=== PATIENT | male | born 1970 | race Caucasian/White ===

== ENCOUNTER 2020-09-21 15:02 | Emergency (ER) | payer OTHER, SELFPAY ==
[2020-09-21 18:40] VITALS: BP 164/99; PULSE 115; RESP 18; TEMP 36.9; O2SAT 93; BMI 25.1
[2020-09-21 20:32] VITALS: BP 172/112; PULSE 108; RESP 16; TEMP 37.2; O2SAT 94
--- NOTE | 2020-09-21 20:48 | ED_ITS ---
HPI - Alcohol General Chief Complaint: ETOH/Substance Use Stated Complaint: MULTPLE COMPLAINTS Time Seen by Provider: 09/21/20 15:10 Source: patient Mode of arrival: ambulatory Limitations: no limitations History of Present Illness HPI narrative: 50-year-old male with significant history of polysubstance abuse presents asking for detox. He is not forthcoming with his drug use but does admit to using Suboxone, cocaine, and the sleeve of alcohol nips today. He does not report suicidal or homicidal ideation, does not report any chest pain or pressure, palpitations, shortness breath, abdominal pain, abdominal distention, dysuria, hematuria, or any other concerning symptoms. MD complaint: alcohol intoxication Last drink: Just prior to admission Chronic alcohol use: Yes Previous visits for alcohol intoxication: Yes Recent trauma: No Associated symptoms: tremors Treatments prior to arrival: none Related Data Allergies Allergy/AdvReac Type Severity Reaction Status Date / Time apple [Apple] Allergy Severe SWELLING, Unverified 05/04/20 15:16 ITCHING plum [[place]] Allergy Severe SWELLING, Unverified 05/04/20 15:16 ITCHING Review of Systems Review of Systems: Constitutional: No Fever, No Chills ENT/Mouth: No sore throat, No Rhinorrhea Eyes: No Eye Pain, No Swelling, No Redness Cardiovascular: No Chest Pain, No SOB Respiratory: No Cough, No Sputum Gastrointestinal: No Nausea, No Vomiting, No Diarrhea, No abdominal Pain Genitourinary: No Dysuria, No Hematuria Musculoskeletal: No joint pain, No Myalgias, No Joint Swelling Skin: No Skin Lesions, No rash Neuro: No Weakness, No Numbness, No Loss of Consciousness, No Dizziness, No Headache Psych: No Anxiety, No Depression, No SI/HI/AH/VH Heme/Lymph: No Bruising, No Bleeding,No Lymphadenopathy Endocrine: No Polyuria, No Polydipsia PMFSH Past Medical History Attestation statement: The following information was validated with the patient. Source: old records reviewed Medical History (Updated 09/21/20 @ 21:16 by Carito Mcclellan NP) H/O alcohol abuse Hypertension Social History Social History Alcohol intake: current Alcohol intake frequency: 3 or more drinks per day [place] type: beer and hard liquor Smoking Status: Current every day smoker Smoked in Last 30 Days: Yes Use of substances other than those prescribed or required for medical reasons: Yes Substance Use Type: Amphetamines, Club/Environmental Conservation Officer Drugs, Crack/Cocaine, Hallucinogens, Heroin, Inhalants, IV Drugs, Marijuana, Methamphetamine, Opiates, Painkillers, Prescription Drugs, Sedatives and Tranquilizers Substance Use Frequency: Daily Last Used Substance: Just Prior to Admission Any prior treatment program specific to substance use: No (i DO ALL OF IT.) Advance Directives: No Advance Directives Information Provided: No Physical Exam Vital Signs: Vital Signs: Last Vital Signs Temp 98.9 F 09/21/20 20:32 Pulse 108 H 09/21/20 20:32 Resp 16 09/21/20 20:32 BP 172/112 H 09/21/20 20:32 Pulse Ox 94 09/21/20 20:32 Body Mass Index 25.1 Appearance: Alert. Oriented X3. No acute distress. Eyes: Pupils equal, round and reactive to light. ENT: Pharynx normal. Neck: Normal inspection. Neck supple. CVS: Normal heart rate and rhythm. Pulses normal. Respiratory: No respiratory distress. Breath sounds normal. Abdomen: Soft and nontender. Skin: Skin warm and dry. Normal skin color. Normal skin turgor. Extremities: No lower extremity edema. Neuro: No motor deficit. No sensory deficit. Course Course Course Narrative: 50-year-old male with past medical history of alcohol, substance abuse presents requesting detox. States that he has been drinking approximately a sleeve of nips, using Suboxone and cocaine on a daily basis. Will order labs and consult with agile coach. retail performance coach in to speak with patient several times, patient states that he would like to leave. This [employer], admission discharge rn at bedside, discussed options with patient. Patient no longer is interested in detox. No longer wants labs drawn. Patient will be discharged home at this time. MDM - Alcohol MDM Narrative Medical decision making narrative: Cocaine dependence Differential Diagnosis Differential diagnosis: Likely alcohol dependence Medical Records Attestation: I reviewed the patient's medical records. Discharge Plan Discharge Clinical Impression: Polysubstance abuse Patient Disposition: Home, Self-Care Instructions: Polysubstance Abuse (ED) Additional Instructions: Please consider detox. Thank you for choosing this emergency department for evaluation. Please follow-up with primary care physician as needed. Return to the emergency department for any new, concerning, or worsening symptoms. Interventions: ED Discharge Assessment Last Done: 09/21/20 22:03 Discharge Date/Time: 09/21/20 22:03
--- NOTE | 2020-09-21 21:15 | MHC.RECOVSUP ---
patient came in looking for detox, was able to find a bed at [facility], Then patient had a change of heart and ask to go home.
--- NOTE | 2020-09-21 21:18 | PC.NURSE ---
md aware of bp. patient refusing detox and further labs. shift counciler to bedside. patient continues to adamently refuse care. htn.
--- NOTE | 2020-09-21 21:33 | PC.NURSE ---
this RN accompanied the provider Carito Kennedy along with Sober assistant women's soccer coach into room to confirm patient requesting detox because detox placement had been found. pt openly refused to go to detox. PT understands risks for leaving and still would like to be discharged and refuses Detox
--- NOTE | 2020-09-21 21:41 | PC.NURSE ---
pt contacted catering staff member. pt reportedly wants to stay. mlp aware. care team aware due to shift counciler shift ending. ed supervisor electric motor testing aware. swat team to contact [facility]. plan of care at this time is to d/c outpatient and follow up with phone resources.
--- NOTE | 2020-09-21 22:00 | PC.NURSE ---
2149: pt given d/c teaching patient adamant that he now wants services. mlp and pat rn to bedside to reexplain care of plan that utilizes outpatient follow up. pt explained cows and ciwa scoring system and at this time he does not meet criteria to medical management by mlp. pt visibly upset. i'm going to because i can't work under these conditions. I'm a machinest. Pt reeducated to admission critera and SHIFT program. pt refused repeat vs. Pt ambulatory in room. Skin p/w/d. no tremors noted. gait steady.
== END 2020-09-21 22:03 | disposition home or self-care (01) ==
PROVIDERS: Emergency Provider Internal Medicine
DX: F11.19 Opioid abuse with unspecified opioid-induced disorder (principal); F14.288 Cocaine dependence with other cocaine-induced disorder; F16.20 Hallucinogen dependence, uncomplicated; F17.200 Nicotine dependence, unspecified, uncomplicated; Z71.6 Tobacco abuse counseling
CPT/HCPCS: 99283; 99285

== ENCOUNTER 2020-09-22 10:12 | Emergency (ER) | payer OTHER, SELFPAY ==
[2020-09-22 11:01] VITALS: BP 163/102; PULSE 107; RESP 18; TEMP 36.6; O2SAT 98; BMI 24.5
[2020-09-22] MEDS: LORazepam 1 MG TABLET PO (12:15)
--- NOTE | 2020-09-22 12:16 | MHC.RECOVSUP ---
Recovery Support note: Patient is a 50 year old male who presented to [facility] seeking detox. Patient presented on 09/21 also seeking detox however he decided against it later on and was discharged home. Patient re-presented on 09/22 and again is reporting a desire to go to detox. Patient met with pitching coach and appears to be motivated to get into treatment. Patient will be referred to ATS facilities for treatment of his alcohol use disorder.
--- NOTE | 2020-09-22 12:36 | MHC.RECOVSUP ---
? Reason for consult:Continuity of care o Current location: o Identified substance use concern: - Withdrawal - Seeking ATS (detox) - Support ? Intervention: o ATS bed search started/completed/in process o Community resources provided o Harm reduction discussion ? Plan: o Bed search in progress to o Follow up tomorrow o Patient to follow up with [facility] after discharge ? Additional information:Patient seems restless and agitated. Pt. was notified of MAT and CCC.
[2020-09-22 12:42] LABS: Ethanol < 10 mg/dL
[2020-09-22 12:45] LABS: Amphetamine Screen Urine Not Detected (Not Detect); Barbiturates, Urine Not Detected (Not Detect); Benzodiazepines Screen Urine Not Detected (Not Detect); Cannabinoid Screen Urine Not Detected (Not Detect); Cocaine Screen Urine POSITIVE (Not Detect); Opiate Screen Urine Not Detected (Not Detect); Phencyclidine Screen Urine Not Detected (Not Detect)
--- NOTE | 2020-09-22 13:43 | PC.NURSE ---
WAITING NO TIME FOR BED [facility]/DETOX
--- NOTE | 2020-09-22 15:23 | ED.PSYCH ---
HPI - Psych General Chief Complaint: ETOH/Substance Use Stated Complaint: CRISIS Time Seen by Provider: 09/22/20 11:42 Source: patient Mode of arrival: ambulatory Limitations: no limitations History of Present Illness HPI Narrative: States he has had issues with poly substances including alcohol use and cocaine use and he is currently doing Suboxone states he would like to get clean and requesting assistance with detox. Last used cocaine yesterday last drink yesterday as well. Denies any SI or HI. No other medical complaints at this time. Associated psychiatric symptoms: none Treatments prior to arrival: none Related Data Allergies Allergy/AdvReac Type Severity Reaction Status Date / Time apple [Apple] Allergy Severe SWELLING, Unverified 05/04/20 15:16 ITCHING plum [[place]] Allergy Severe SWELLING, Unverified 05/04/20 15:16 ITCHING Review of Systems Review of Systems: Constitutional: No Weight loss, No Fever, No Chills, No Night Sweats, No Fatigue, No Malaise ENT/Mouth: No Hearing loss, No Ear Pain, No Nasal Congestion, No Sinus Pain, No Hoarseness, No sore throat, No Rhinorrhea, No Swallowing Difficulty Eyes: No Eye Pain, No Swelling, No Redness, No Foreign Body, No Discharge, No Vision Changes Cardiovascular: No Chest Pain, No SOB, No Dyspnea on Exertion, No Orthopnea, No Edema, No Palpitations Respiratory: No Cough, No Sputum, No Wheezing, No Smoke Exposure, No Dyspnea Gastrointestinal: No Nausea, No Vomiting, No Diarrhea, No Constipation, No abdominal Pain, No Hematochezia, No Melena Genitourinary: no irregular bleeding, No Dysuria, No Urinary Frequency, No Hematuria, No Urinary Incontinence, No Urgency, No Flank Pain Musculoskeletal: No joint pain, No Myalgias, No Joint Swelling Skin: No Skin Lesions, No rash Neuro: No Weakness, No Numbness, No Paresthesias, No Loss of Consciousness, No Dizziness, No Headache Psych: No Anxiety/Panic, No Depression, No SI/HI/AH/VH, as noted HPI Heme/Lymph: No Bruising, No Bleeding,No Lymphadenopathy Endocrine: No Polyuria, No Polydipsia, No Temperature Intolerance Yes all other systems are reviewed and are negative [facility] Past Medical History Medical History (Updated 09/23/20 @ 00:01 by Background Daemon) H/O alcohol abuse Hypertension Social History Social History Alcohol intake: current Alcohol intake frequency: 3 or more drinks per day Alcohol type: beer and hard liquor Smoking Status: Current every day smoker Substance Use Type: Amphetamines, Club/Control Systems Drafting Officer Drugs, Crack/Cocaine, Hallucinogens, Heroin, Inhalants, IV Drugs, Marijuana, Methamphetamine, Opiates, Painkillers, Prescription Drugs, Sedatives and Tranquilizers Advance Directives: No Advance Directives Information Provided: No Physical Exam Vital Signs: Vital Signs: Last Vital Signs Temp 97.9 F 09/22/20 11:01 Pulse 107 H 09/22/20 11:01 Resp 18 09/22/20 11:01 BP 163/102 H 09/22/20 11:01 Pulse Ox 98 09/22/20 11:01 Body Mass Index 24.5 Reviewed Const: General: cooperative and healthy appearing; No acute distress or intoxicated appearing Nutritional Appearance: average body habitus Orientation/consciousness: patient oriented x3 HENMT: Head: Yes normal to inspection Ears: hearing grossly normal bilaterally Eyes: General: appearance normal, both eyes and all related structures Visual Linder: normal visual linder by confrontation Neck: Neck: Yes normal visual inspection, No positive Brudzinski's sign, No positive Kernig's sign and No tender Thyroid: Thyroid normal Chest: Chest palpation & inspection: normal inspection of the chest Resp: Effort & Inspection: normal respiratory effort Auscultation: clear to auscultation bilaterally Cardio: Jugular venous distension: no JVD Rhythm: regular rhythm Heart sounds: S1 normal heart sound present and S2 normal heart sound present GI: Inspection: Yes normal to inspection Percussion: Yes normal to percussion Auscultation: normal bowel sounds : General: Yes no CVA tenderness Back/Spine/Pelvis: Back: no CVA tenderness Skin: General skin exam: no rashes or lesions noted Neuro: General: patient oriented x3 Extrem: General: Yes normal to inspection Course Course Course Narrative: Offers no medical complaints. U tox/ETOH and consult assistant track coach for services. Reevaluation(s) Reevaluation #1: Did intake [facility]. He offers no other complaints. [facility] will provide transportation for the patient to the detox center. MDM - Psych Lab Data Labs: Lab Results 09/22/20 09/22/20 09/22/20 Range/Units 12:02 12:04 17:35 Hold Yellow Top See Note Urine Opiates Screen Not Detected (Not Detect) Ur Barbiturates Screen Not Detected (Not Detect) Ur Phencyclidine Scrn Not Detected (Not Detect) Ur Amphetamines Screen Not Detected (Not Detect) U Benzodiazepines Scrn Not Detected (Not Detect) Urine Cocaine Screen POSITIVE H (Not Detect) U Marijuana (THC) Screen Not Detected (Not Detect) Ethyl Alcohol < 10 mg/dL Discharge Plan Discharge Clinical Impression: Active substance abuse Patient Disposition: Home, Self-Care Instructions: Polysubstance Abuse (ED) Additional Instructions: Please go directly to detox Referrals: Martínez Tran MD [Primary Care Provider] - 3 days Interventions: ED Discharge Assessment Last Done: 09/22/20 15:32 Discharge Date/Time: 09/22/20 15:57
--- NOTE | 2020-09-22 15:52 | MHC.RECOVSUP ---
Recovery Support note: Patient has been accepted to [facility] for a 1700 admission. Patient will be transported by [facility] home to get medications and then they will take him to treatment. Patient agreeable to plan.
== END 2020-09-22 15:57 | disposition home or self-care (01) ==
PROVIDERS: Nurse Practitioner Primary Care; Emergency Provider Emergency Medicine Emergency Medical Services; PCP Internal Medicine
DX: Z02.2 Encounter for examination for admission to residential institution (principal); F19.10 Other psychoactive substance abuse, uncomplicated; F11.20 Opioid dependence, uncomplicated
CPT/HCPCS: 36415; 80307; 80320; 99284

== ENCOUNTER 2023-11-06 17:27 | Emergency (ER) | payer OTHER, SELFPAY ==
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
[2023-11-06 17:58] VITALS: BP 150/92; PULSE 112; RESP 16; TEMP 37; O2SAT 96; BMI 24.2
[2023-11-06 18:19] LABS: MANUAL DIFF FLAG NO
[2023-11-06 18:20] LABS: Basophils Absolute Auto 0.1 X10*3/uL (0.0-0.2); Basophils Percent Auto 0.6 % (0-2); Eosinophils Absolute Auto 0.6 X10*3/uL (0.0-0.4); Eosinophils Percent Auto 5.9 % (0-4); Hematocrit 37.4 % (42.0-52.0); Hemoglobin 13.1 g/dl (14.0-18.0); Imm Gran Abs Auto 0.03 X10*3/uL (0.00-0.03); Imm Gran Pct Auto 0.3 % (0.0-0.4); Lymphocytes Absolute Auto 2.5 X10*3/uL (1.2-4.9); Lymphocytes Percent Auto 26.7 % (20-40); Mean Corpuscular Hemoglobin 32.8 pg (27.0-33.0); Mean Corpuscular Volume 93.7 fL (80.0-98.0); Mean Platelet Volume 7.9 fL (9.4-12.4); Monocytes Absolute Auto 0.6 X10*3/uL (0.1-1.2); Monocytes Percent Auto 6.7 % (2-11); Neutrophils Absolute Auto 5.6 x10*3/uL (2.0-8.3); Neutrophils Percent Auto 59.8 % (45-73); Platelet Count 230 X10*3/uL (160-400); Red Blood Count 3.99 X10*6/uL (4.60-5.80); Red Cell Distribution Width 12.8 % (11.0-16.0); White Blood Count 9.3 X10*3/uL (4.8-10.8)
[2023-11-06 18:25] LABS: INTERNATIONAL NORM RATIO 1.2 (0.9-1.1)
[2023-11-06 18:38] LABS: Alanine Aminotransferase 49 U/L (0-40); Alkaline Phosphatase 165 U/L (39-117); Anion Gap 16 (12-20); Aspartate Amino Transferase 78 U/L (5-37); Bilirubin Total 0.7 mg/dL (0.0-1.0); Blood Urea Nitrogen 20 mg/dL (9-16); Calcium 9.2 mg/dL (8.4-10.2); Carbon Dioxide 25 mmol/L (22-29); Chloride 101 mmol/L (96-108); Creatinine Clr Calc Pharmacy 88.7; Estimated Glomerular Filt Rate > 60; Glucose Random 111 mg/dL (60-115); Potassium 4.2 mmol/L (3.3-5.1); Sodium 138 mmol/L (135-145); Total Protein 7.9 g/dL (6.5-8.0)
[2023-11-06] MEDS: ondansetron HCL 4 MG/2 ML VIAL IVPUSH (19:25)
[2023-11-06] MEDS: Morphine Sulfate 4 MG/ML CARTRIDGE IVPUSH (19:27)
--- NOTE | 2023-11-06 19:44 | PC.NURSE ---
patient a&ox3, iv inserted, labs drawn, c/o generalized full body pain stating his head, neck, rt arm, back and leg pain, pt was ambulating/pacing in the room, neuros intact, pt has + csms in all extremities. pt medicated for pain per order. CT scan came to bring pt to radiology and this nurse noticed he was being walked to radiology instead of being brought in a bed or wheelchair after he was already down the hallway with collision technician.
[2023-11-06 21:16] VITALS: BP 138/95; PULSE 110; RESP 18; TEMP 36.8; O2SAT 98
[2023-11-06 22:12] VITALS: BP 136/88; PULSE 96; RESP 16; TEMP 36.7; O2SAT 98
== END 2023-11-06 22:13 | disposition home or self-care (01) ==
PROVIDERS: Physician Assistant; Emergency Provider Internal Medicine; PCP Internal Medicine
DX: S00.91XA Abrasion of unspecified part of head, initial encounter (principal); S16.1XXA Strain of muscle, fascia and tendon at neck level, initial encounter; M54.2 Cervicalgia; R51.9 Headache, unspecified; R07.89 Other chest pain; V11.4XXA Pedal cycle driver injured in collision with other pedal cycle in traffic accident, initial encounter; Y93.9 Activity, unspecified; Y92.410 Unspecified street and highway as the place of occurrence of the external cause; Y99.8 Other external cause status; Z79.899 Other long term (current) drug therapy
CPT/HCPCS: 36415; 70450; 71260; 72125; 74177; 80053; 85025; 85610; 96374; 96375; 99284; J2270; J2405